=== PATIENT | female | born 1990 | race American Indian/Alaskan Native ===

== ENCOUNTER 2017-02-07 05:12 | Inpatient (IN) | payer OTHER ==
[2017-02-07 06:13] LABS: Basophils % (Auto) 0.7 % (0.0-1.8); Eosinophils % (Auto) 1.7 % (0.0-4.3); Mean Corpuscular HGB Conc 29 % (30-34); Platelet Count 481 K/mm3 (140-440); Red Blood Count 4.15 M/mm3 (3.65-5.03); Red Cell Distribution Width 19.5 % (13.2-15.2); White Blood Count 7.5 K/mm3 (4.5-11.0)
[2017-02-07 06:21] LABS: Alanine Aminotransferase 11 units/L (7-56); Albumin 4.4 g/dL (3.9-5); Albumin/Globulin Ratio 1.3 %; Alkaline Phosphatase 47 units/L (35-129); Anion Gap 17 mmol/L; Blood Urea Nitrogen 9 mg/dL (7-17); Calcium 9.2 mg/dL (8.4-10.2); Carbon Dioxide 23 mmol/L (22-30); Chloride 102.2 mmol/L (98-107); Glucose 85 mg/dL (65-100); Lipase 17 units/L (13-60); Potassium 4.1 mmol/L (3.6-5.0); Sodium 138 mmol/L (137-145); Total Protein 7.8 g/dL (6.3-8.2)
[2017-02-07] MEDS ORDERED: ATIVAN ONE (06:41)
[2017-02-07] MEDS ORDERED: ATIVAN IV ONE (06:51)
[2017-02-07 06:54] LABS: Hemoglobin 7.6 gm/dl (10.1-14.3); Mean Corpuscular Hemoglobin 18 pg (28-32); Mean Corpuscular Volume 63 fl (79-97)
[2017-02-07 07:13] LABS: Urine Drugs of Abuse Note Disclamer
[2017-02-07 07:27] LABS: Bilirubin,Urine NEG (Negative); Blood,Urine MOD (Negative); Ketones,Urine NEG (Negative); Leukocyte Esterase,Urine NEG (Negative); Mucus,Urine FEW /HPF; Nitrite,Urine NEG (Negative); Protein,Urine <15 mg/dL mg/dL (Negative); Urobilinogen,Urine < 2.0 mg/dL (<2.0)
[2017-02-07] MEDS ORDERED: NACL 0.9% 1000 ML 1,000 ML IV ONE (09:21)
[2017-02-07] MEDS ORDERED: NACL 0.9% 500 ML 500 ML IV ONE (09:21)
[2017-02-07] MEDS ORDERED: ZOFRAN IV ONE (09:21)
[2017-02-07] MEDS ORDERED: MORPHINE IV ONE (09:21)
[2017-02-07] MEDS ORDERED: DILANTIN PO ONE (09:23)
--- NOTE | 2017-02-07 09:29 | Emergency Department Report ---
ED General Adult HPI - General Chief complaint: Seizure Stated complaint: ABDOMINAL PAIN Time Seen by Provider: 02/07/17 06:51 Source: patient, EMS Mode of arrival: Stretcher Limitations: No Limitations - History of Present Illness Initial comments: Patient complains recurrent pelvic pain which she states is associated with fibroids as well as vaginal bleeding. She has been previously transfused for dysfunctional uterine bleeding. She also states that when she has this problem she typically has a seizure. She states that she was on the way to a pharmacy to refill her phenytoin however due to her bleeding and abdominal pain she came here instead. Not long after she was placed in the treatment area she had tonic -clonic movements. She did respond to sternal rub however and did not exhibit a definite postictal period. She was found to be tracking on stimulation. It is unknown if this was a partial seizure or a pseudoseizure. In any case she was given a milligram of Ativan and rested comfortably after that. -: days(s), week(s) Location: pelvis Radiation: non-radiation Severity scale (0 -10): 10 Quality: aching Consistency: intermittent Improves with: none Worsens with: none Associated Symptoms: denies other symptoms - Related Data Home Medications Medication Instructions Recorded Confirmed Last Taken Phenytoin [Dilantin] 500 mg PO BID 07/07/15 02/07/17 07/07/15 Previous Rx's Medication Instructions Recorded Last Taken Type HYDROcodone/APAP 7.5-325 [[place] 1 each PO Q8HR PRN #12 tablet 07/08/15 Unknown Rx 7.5-325 mg TAB] Allergies Allergy/AdvReac Type Severity Reaction Status Date / Time No Known Allergies Allergy Unverified 07/07/15 23:47 ED Review of Systems ROS: Stated complaint: ABDOMINAL PAIN Other details as noted in HPI Constitutional: weakness. denies: chills, fever Eyes: denies: eye pain, eye discharge, vision change ENT: denies: ear pain, throat pain Respiratory: SOB with exertion. denies: cough, shortness of breath, wheezing Cardiovascular: denies: chest pain, palpitations Endocrine: no symptoms reported Gastrointestinal: denies: abdominal pain, nausea, diarrhea Genitourinary: abnormal menses. denies: urgency, dysuria, discharge Musculoskeletal: denies: back pain, joint swelling, arthralgia Skin: denies: rash, lesions Neurological: denies: headache, weakness, paresthesias Psychiatric: denies: anxiety, depression Hematological/Lymphatic: denies: easy bleeding, easy bruising ED Past Medical Hx - Past Medical History Previous Medical History?: Yes Hx Seizures: Yes - Surgical History Past Surgical History?: No - Social History Smoking Status: Current Every Day Smoker Substance Use Type: Alcohol - Medications Home Medications: Home Medications Medication Instructions Recorded Confirmed Last Taken Type Phenytoin [Dilantin] 500 mg PO BID 07/07/15 02/07/17 07/07/15 History HYDROcodone/APAP 7.5-325 [[place] 1 each PO Q8HR PRN #12 tablet 07/08/15 02/07/17 Unknown Rx 7.5-325 mg TAB] ED Physical Exam - General Limitations: No Limitations General appearance: alert, in no apparent distress - Head Head exam: Present: atraumatic, normocephalic - Eye Eye exam: Present: normal appearance, PERRL, EOMI. Absent: scleral icterus - ENT ENT exam: Present: mucous membranes moist - Neck Neck exam: Present: normal inspection - Respiratory Respiratory exam: Present: normal lung sounds bilaterally. Absent: respiratory distress - Cardiovascular Cardiovascular Exam: Present: regular rate, normal rhythm. Absent: systolic murmur, diastolic murmur, rubs, gallop - GI/Abdominal GI/Abdominal exam: Present: soft, tenderness (discomfort to palpation appears to be associated with an enlarged uterus), normal bowel sounds, mass. Absent: distended, guarding, rebound, rigid, bruit, pulsatile mass, hernia - Extremities Exam Extremities exam: Present: normal inspection - Back Exam Back exam: Present: normal inspection - Neurological Exam Neurological exam: Present: alert, oriented X3, CN II-XII intact. Absent: motor sensory deficit - Psychiatric Psychiatric exam: Present: normal affect, normal mood - Skin Skin exam: Present: warm, dry, intact, normal color. Absent: rash ED Course Vital Signs 02/07/17 05:30 Temperature 98.8 F Pulse Rate 82 Respiratory 18 Rate Blood Pressure 128/84 [Right] O2 Sat by Pulse 99 Oximetry - Reevaluation(s) Reevaluation #1: Given IV fluid. One unit of blood ordered. Discussed with Dr. Reed admitted to the hospitalist service in stable condition. Ultrasound of the pelvis has been ordered. Further consultation at [facility] 02/07/17 10:25 ED Medical Decision Making - Lab Data Result diagrams: 02/07/17 05:35 02/07/17 05:35 Laboratory Results - last 24 hr 02/07/17 02/07/17 02/07/17 05:28 05:35 05:35 WBC 7.5 RBC 4.15 Hgb 7.6 L Hct 26.0 L MCV 63 L MCH 18 L MCHC 29 L RDW 19.5 H Plt Count 481 H Lymph % (Auto) 25.1 Bond % (Auto) 9.4 H Eos % (Auto) 1.7 Baso % (Auto) 0.7 Lymph # 1.9 Bond # 0.7 Eos # 0.1 Baso # 0.1 Seg Neutrophils % 63.1 Seg Neutrophils # 4.7 Sodium 138 Potassium 4.1 Chloride 102.2 Carbon Dioxide 23 Anion Gap 17 BUN 9 Creatinine 0.5 L Estimated GFR > 60 BUN/Creatinine Ratio 18.00 Glucose 85 Calcium 9.2 Total Bilirubin 0.30 AST 14 ALT 11 Alkaline Phosphatase 47 Total Protein 7.8 Albumin 4.4 Albumin/Globulin Ratio 1.3 Lipase 17 Urine Color Urine Turbidity Urine pH Ur Specific [employer] Urine Protein Urine Glucose (UA) Urine Ketones Urine Blood Urine Nitrite Urine Bilirubin Urine Urobilinogen Ur Leukocyte Esterase Urine WBC (Auto) Urine RBC (Auto) U Epithel Cells (Auto) Urine Mucus Urine HCG, Qual Urine Opiates Screen Urine Methadone Screen Ur Barbiturates Screen Phenytoin 0.8 L Ur Phencyclidine Scrn Ur Amphetamines Screen U Benzodiazepines Scrn Urine Cocaine Screen 02/07/17 02/07/17 06:19 06:19 WBC RBC Hgb Hct MCV MCH MCHC RDW Plt Count Lymph % (Auto) Bond % (Auto) Eos % (Auto) Baso % (Auto) Lymph # Bond # Eos # Baso # Seg Neutrophils % Seg Neutrophils # Sodium Potassium Chloride Carbon Dioxide Anion Gap BUN Creatinine Estimated GFR BUN/Creatinine Ratio Glucose Calcium Total Bilirubin AST ALT Alkaline Phosphatase Total Protein Albumin Albumin/Globulin Ratio Lipase Urine Color Straw Urine Turbidity Clear Urine pH 7.0 Ur Specific [employer] 1.016 Urine Protein <15 mg/dl Urine Glucose (UA) Neg Urine Ketones Neg Urine Blood Mod Urine Nitrite Neg Urine Bilirubin Neg Urine Urobilinogen < 2.0 Ur Leukocyte Esterase Neg Urine WBC (Auto) 1.0 Urine RBC (Auto) 12.0 U Epithel Cells (Auto) < 1.0 Urine Mucus Few Urine HCG, Qual Negative Urine Opiates Screen Presumptive negative Urine Methadone Screen Presumptive negative Ur Barbiturates Screen Presumptive negative Phenytoin Ur Phencyclidine Scrn Presumptive negative Ur Amphetamines Screen Presumptive negative U Benzodiazepines Scrn Presumptive negative Urine Cocaine Screen Presumptive negative Critical care attestation.: If time is entered above; I have spent that time in minutes in the direct care of this critically ill patient, excluding procedure time. ED Disposition Clinical Impression: Dysfunctional uterine bleeding, Symptomatic anemia, Seizure, Seizure disorder Disposition: OP ADMITTED IP TO THIS HOSP Is pt being admited?: Yes Does the pt Need Aspirin: No Condition: Stable Referrals: PRIMARY CARE, [Primary Care Provider] - 3-5 Days Time of Disposition: 10:27
--- NOTE | 2017-02-07 10:31 | Admit Criteria Form ---
Admission Criteria Documentation: OBSTETRIC AND GYNECOLOGIC DISEASE GRG Clinical Indications for Admission to Inpatient Care (Place 'X' for any and all applicable criteria): Hospital admission is needed for appropriate care of the patient because of 1 or more of the following (1)(2)(3): [ ]I. Hemodynamic instability, as indicated by 1 or more of the following (1)( 2)(3)(4)(5): [ ]a) Vital signs or other findings not as expected for chronic patient condition or baseline [ ]b) Instability indicated by 1 or more of the following: [ ]i) Hypotension [ ]ii) Symptomatic tachycardia unresponsive to treatment (eg, analgesia, fluids, sedation as indicated) [ ]iii) Inadequate perfusion indicated by 1 or more of the following: [ ]A. Lactic acidosis (greater than 2 mmol/ L) [ ]B. New abnormal capillary refill ( greater than 3 seconds) [ ]C. Reduced urine output [ ]D. New altered mental status [ ]iv) Orthostatic vital sign changes unresponsive to treatment (eg, fluids) [ ]v) Multiple IV fluid boluses required to maintain adequate blood pressure or perfusion [ ]vi) IV inotropic or vasopressor medication required to maintain adequate blood pressure or perfusion [ ]II. Obstetric infection requiring hospitalization indicated by 1 or more of the following(13)(14): [ ]a) Chorioamnionitis [ ]b) Endometritis (except mild endometritis) [ ]c) Pelvic abscess [ ]d) Peritonitis [ ]e) Septic pelvic thrombophlebitis [ ]III. Amniotic fluid or pulmonary embolism(4)(5)(6) [ ]IV. Suspected peritonitis or ectopic requiring monitoring beyond scope of 24 hours or observation care(7)(8) [ ]V. compromise requiring hospitalization indicated by ALL of the following(9)(10): [ ]a) compromise indicated by 1 or more of the following(11): [ ]i) Abnormal heart rate monitoring [ ]ii) Abnormal contraction stress test [ ]iii) Abnormal biophysical profile [ ]iv) Abnormal Doppler flow in vessels (ie, Doppler velocimetry) (12) [ ]b) Persistence of compromise indicators during evaluation and observation monitoring [ ]. Ovarian hyperstimulation syndrome requiring hospitalization[A] indicated by ALL of the following(15): [ ]a) Recent ovarian stimulation with gonadotropins, or evidence on ultrasound of spontaneous emergence of large number of ovarian follicles [ ]b) Evidence of severe ovarian hyperstimulation syndrome indicated by 1 or more of the following: [ ]i) Abdominal pain unresponsive to oral therapy [ ]ii) Acute respiratory distress syndrome [ ]iii) Electrolyte imbalance ( eg, hyponatremia, hyperkalemia) [ ]iv) Elevated liver enzymes [ ]v) Evidence of thromboembolism [ ]vi) Hemoconcentration (hematocrit greater than 45 % (0.45)) [ ]vii) Inability to maintain oral intake adequate to prevent hemoconcentration [ ]viii) Marked hypotension from baseline (eg, SBP 20 mmHg below patients usual pressure) [ ]ix) Oliguria or anuria [ ]x) Ovarian torsion [ ]xi) Pleural or pericardial effusion on x-ray or echocardiogram [ ]xii) Rapid increase in serum creatinine to greater than 1.2 mg/dL (106 micromoles/L) or creatinine clearance less than 50 mL/min/1.73m2 (0.84 mL/ sec/1.73m2) [ ]xiii) Ruptured ovarian cyst with hemorrhage [ ]xiv) Severe abdominal pain or peritoneal signs [ ]xv) Tense ascites that cannot be managed with paracentesis in outpatient setting [ ]VII.Pelvic infection requiring hospitalization indicated by 1 or more of the following (16): [ ]a) Outpatient treatment has failed or is not appropriate (eg, inpatient monitoring required) [ ]b) Pelvic abscess [ ]c) Surgical emergency cannot be excluded (eg, rigid abdomen) [ ]d) Vomiting precluding outpatient and observation care management VIII. loss complications requiring inpatient medical treatment indicated by 1 or more of the following (4)(7)(9): [ ]a) Fever [ ]b) Peritonitis [ ]c) Sepsis [ ]d) Severe abdominal pain [ ]IX. or patient requiring monitoring for severe heart failure, pulmonary disease, or other comorbid condition (eg, peripartum cardiomyopathy) (4)(17) [ ]X. patient with rupture of membranes requiring hospitalization indicated by ANY ONE of the following: [ ]a) Chorioamnionitis, cloudy amniotic fluid, or other evidence of infection [ ]b) compromise or other need for monitoring (11) [ ]c) Gestation longer than 23 weeks and ANY ONE of the following: [ ]i) Abnormal (noncephalic) presentation [ ]ii) Inadequate home environment (eg, home too far from hospital, unable to rapidly return to hospital) [ ]d) Temperature greater than 100.4 degrees F (38 degrees C)( oral) [ ]e) Threatened labor requiring monitoring beyond scope (eg, over 24 hours) of observation Care [ ] XI. complications, including severe lacerations, infections, or retained placenta (19) [X ] XII.Uterine bleeding with high-risk features indicated by ANY ONE of the following (4): [ ]a) Active major hemorrhage (eg, hemorrhage) [ ]b) Coagulopathy with active bleeding [ ]c) Gestational trophoblastic disease (eg, molar ) (20 ) [ ]d) (longer than 23 weeks) and ANY ONE of the following: [ ]i) Pain [ ]ii) Placental abruption, known or suspected [ ]iii) Placenta accrete, known or suspected(21) [ ]iv) Placenta previa, known or suspected [ ]v) Vasa previa [X ]e) Severe anemia [ ]XIII. Obstetric or Gynecologic Disease, condition or symptom for which ANY ONE of the following: [ ]a) Emergency and observation care have failed or are not considered appropriate ( Also use General Criteria: Observation Care Criteria as appropriate) [ ]b) Presence of a General Admission Criteria or Pediatric General Admission Criteria The original [facility] [address] content created by [facility] has been revised. The portions of the content which have been revised are identified through the use of italic text or in bold, and [facility] has neither reviewed nor approved the modified material.All other unmodified content is copyright [facility]. Please see references footnoted in the original [facility] edition 2016 Admission Criteria Met: Yes
[2017-02-07] MEDS ORDERED: DILANTIN 1,000 MG in NACL 0.9% 250ML 250 ML IV ONE (10:38)
[2017-02-07] MEDS ORDERED: DULCOLAX PR PRN (10:39)
[2017-02-07] MEDS ORDERED: MILK OF MAGNESIA PO PRN (10:39)
--- NOTE | 2017-02-07 10:47 | History and Physical Report ---
History of Present Illness Chief complaint: Seizure History of present illness: 26-year-old medical history of dysfunctional uterine bleeding, has a history of metromenorrhagia, and seizure disorder for which he takes Dilantin. She apparently was on her way to the pharmacy to refill her procedure for Dilantin, but instead came to the ER because pelvic pain and vaginal bleeding where getting out of control, shortly after arriving in the ER she suffered a tonic- clonic seizure after which is in post ictal and nonverbal for a period shorter than an hour. Her mentation then went back to her baselien, She states that she takes her phenytoin everyday and did not run out or miss any doses. She has been having issues with vaginal bleeding/pelvic pain for years now, but has never seen a [employer] because she does not have insurance. Vital signs otherwise been stable, review of labs shows subtherapeutic phenytoin levels. Anemia with a hemoglobin of 7.6. She states that she was supposed to be on iron supplements , but admits that she has not been taking them due to side effects Past History Past Medical History: other (dysfunctional uterine bleeding, seizure disorder) Past Surgical History: No surgical history Social history: smoking (for 8 years, has now weaned to 1-2 cigarettes per day) Family history: other (seizure in her neice) Medications and Allergies Allergies Allergy/AdvReac Type Severity Reaction Status Date / Time No Known Allergies Allergy Unverified 07/07/15 23:47 Home Medications Medication Instructions Recorded Confirmed Last Taken Type Phenytoin [Dilantin] 500 mg PO BID 07/07/15 02/07/17 07/07/15 History HYDROcodone/APAP 7.5-325 [[place] 1 each PO Q8HR PRN #12 tablet 07/08/15 02/07/17 Unknown Rx 7.5-325 mg TAB] Active Meds: Active Medications Acetaminophen (Tylenol) 650 mg PO Q4H PRN PRN Reason: Pain MILD(1-3)/Fever >100.5/ESPITIA Acetaminophen/Hydrocodone Bitart ([place] 7.5/325) 1 each PO Q8HR PRN PRN Reason: Pain Bisacodyl (Dulcolax) 10 mg MO QDAY PRN PRN Reason: Constipation unrelieved by MOM Phenytoin 1,000 mg/ Sodium (Chloride) 270 mls @ 500 mls/hr IV ONCE ONE Stop: 05/11/17 11:10 Sodium Chloride (Nacl 0.9% 1000 Ml) 1,000 mls @ 100 mls/hr IV DIRECT RICHA Magnesium Hydroxide (Milk Of Magnesia) 30 ml PO Q4H PRN PRN Reason: Constipation Ondansetron HCl (Zofran) 4 mg IV Q8H PRN PRN Reason: N/V unrelieved by Reglan Phenytoin (Dilantin) 500 mg IV BID RICHA Review of Systems All systems: negative Constitutional: weakness Genitourinary Female: dysmenorrhea, pelvic pain, menorrhagia Exam - Constitutional Vitals: Temp Pulse Resp BP Pulse Ox 98.8 F 82 18 128/84 99 02/07/17 05:30 02/07/17 05:30 02/07/17 05:30 02/07/17 05:30 02/07/17 05:30 General appearance: Present: no acute distress, well-nourished - EENT Eyes: Present: PERRL ENT: clear oral mucosa - Neck Neck: Present: supple, normal ROM - Respiratory Respiratory effort: normal Respiratory: bilateral: CTA - Cardiovascular Heart Sounds: Present: S1 & S2. Absent: rub, click - Extremities Extremities: pulses symmetrical, No edema Peripheral Pulses: within normal limits - Abdominal General gastrointestinal: Present: soft, non-tender, non-distended, normal bowel sounds Female genitourinary: Present: normal - Integumentary Integumentary: Present: clear, warm, dry - Musculoskeletal Musculoskeletal: strength equal bilaterally - Psychiatric Psychiatric: appropriate mood/affect, intact judgment & insight - Neurologic Neurologic: CNII-XII intact, no focal deficits, moves all extremities Results - Labs CBC & Chem 7: 02/07/17 05:35 02/07/17 05:35 Labs: Laboratory Last Values WBC 7.5 K/mm3 (4.5-11.0) 02/07/17 05:35 RBC 4.15 M/mm3 (3.65-5.03) 02/07/17 05:35 Hgb 7.6 gm/dl (10.1-14.3) L 02/07/17 05:35 Hct 26.0 % (30.3-42.9) L 02/07/17 05:35 MCV 63 fl (79-97) L 02/07/17 05:35 MCH 18 pg (28-32) L 02/07/17 05:35 MCHC 29 % (30-34) L 02/07/17 05:35 RDW 19.5 % (13.2-15.2) H 02/07/17 05:35 Plt Count 481 K/mm3 (140-440) H 02/07/17 05:35 Lymph % (Auto) 25.1 % (13.4-35.0) 02/07/17 05:35 [place] % (Auto) 9.4 % (0.0-7.3) H 02/07/17 05:35 Eos % (Auto) 1.7 % (0.0-4.3) 02/07/17 05:35 Baso % (Auto) 0.7 % (0.0-1.8) 02/07/17 05:35 Lymph # 1.9 K/mm3 (1.2-5.4) 02/07/17 05:35 [place] # 0.7 K/mm3 (0.0-0.8) 02/07/17 05:35 Eos # 0.1 K/mm3 (0.0-0.4) 02/07/17 05:35 Baso # 0.1 K/mm3 (0.0-0.1) 02/07/17 05:35 Seg Neutrophils % 63.1 % (40.0-70.0) 02/07/17 05:35 Seg Neutrophils # 4.7 K/mm3 (1.8-7.7) 02/07/17 05:35 Sodium 138 mmol/L (137-145) 02/07/17 05:35 Potassium 4.1 mmol/L (3.6-5.0) 02/07/17 05:35 Chloride 102.2 mmol/L (98-107) 02/07/17 05:35 Carbon Dioxide 23 mmol/L (22-30) 02/07/17 05:35 Anion Gap 17 mmol/L 02/07/17 05:35 BUN 9 mg/dL (7-17) 02/07/17 05:35 Creatinine 0.5 mg/dL (0.7-1.2) L 02/07/17 05:35 Estimated GFR > 60 ml/min 02/07/17 05:35 BUN/Creatinine Ratio 18.00 % 02/07/17 05:35 Glucose 85 mg/dL (65-100) 02/07/17 05:35 Calcium 9.2 mg/dL (8.4-10.2) 02/07/17 05:35 Total Bilirubin 0.30 mg/dL (0.1-1.2) 02/07/17 05:35 AST 14 units/L (5-40) 02/07/17 05:35 ALT 11 units/L (7-56) 02/07/17 05:35 Alkaline Phosphatase 47 units/L (35-129) 02/07/17 05:35 Total Protein 7.8 g/dL (6.3-8.2) 02/07/17 05:35 Albumin 4.4 g/dL (3.9-5) 02/07/17 05:35 Albumin/Globulin Ratio 1.3 % 02/07/17 05:35 Lipase 17 units/L (13-60) 02/07/17 05:35 Urine Color Straw (Yellow) 02/07/17 06:19 Urine Turbidity Clear (Clear) 02/07/17 06:19 Urine pH 7.0 (5.0-7.0) 02/07/17 06:19 Ur Specific [place] 1.016 (1.003-1.030) 02/07/17 06:19 Urine Protein <15 mg/dl mg/dL (Negative) 02/07/17 06:19 Urine Glucose (UA) Neg mg/dL (Negative) 02/07/17 06:19 Urine Ketones Neg mg/dL (Negative) 02/07/17 06:19 Urine Blood Mod (Negative) 02/07/17 06:19 Urine Nitrite Neg (Negative) 02/07/17 06:19 Urine Bilirubin Neg (Negative) 02/07/17 06:19 Urine Urobilinogen < 2.0 mg/dL (<2.0) 02/07/17 06:19 Ur Leukocyte Esterase Neg (Negative) 02/07/17 06:19 Urine WBC (Auto) 1.0 /HPF (0.0-6.0) 02/07/17 06:19 Urine RBC (Auto) 12.0 /HPF (0.0-6.0) 02/07/17 06:19 U Epithel Cells (Auto) < 1.0 /HPF (0-13.0) 02/07/17 06:19 Urine Mucus Few /HPF 02/07/17 06:19 Urine HCG, Qual Negative (Negative) 02/07/17 06:19 Urine Opiates Screen Presumptive negative 02/07/17 06:19 Urine Methadone Screen Presumptive negative 02/07/17 06:19 Ur Barbiturates Screen Presumptive negative 02/07/17 06:19 Phenytoin 0.8 mg/L (10.0-20.0) L 02/07/17 05:28 Ur Phencyclidine Scrn Presumptive negative 02/07/17 06:19 Ur Amphetamines Screen Presumptive negative 02/07/17 06:19 U Benzodiazepines Scrn Presumptive negative 02/07/17 06:19 Urine Cocaine Screen Presumptive negative 02/07/17 06:19 Blood Type A POSITIVE 02/07/17 09:25 Crossmatch See Detail 02/07/17 09:25 - Imaging and Cardiology Chest x-ray: image reviewed (no acute findings) Assessment and Plan Assessment and plan: 18-year-old past medical history of seizure disorder and dysfunctional uterine bleeding who presented for complaints of breakthrough menorrhagia. She had not filled her prescription for phenytoin, shortly after arriving in the ER she suffered a tonic-clonic seizure which broke with Ativan 1. Uncontrolled seizure disorder Phenytoin levels are subtherapeutic, currently 0.8, will give a phenytoin load and put her back on had normal dose of phenytoin, neurology consulted 2. Toxic metabolic encephalopathy Due to uncontrolled seizure, patient was post ictal, now resolved 3. Tobacco abuse Counseling was done for 10 minutes, she admits that she needs to stop smoking the occasional cigarettes 4. Metromenorrhagia Differential diagnosis include fibroids or endometriosis, follow-up ultrasound of her pelvis, [employer] [employer] consult 5. Acute blood loss anemia We'll start patient on iron supplements, transfuse to keep hemoglobin above 7., Current hemoglobin is 7.6 Plan of care discussed with patient/family: Yes
--- NOTE | 2017-02-07 10:59 | Ultrasound Report ---
ULTRASOUND PELVIC COMPLETE ULTRASOUND TRANSVAGINAL HISTORY: Pelvic pain, vaginal bleeding. TECHNIQUE: Transabdominal and transvaginal ultrasound with color and spectral doppler interrogation. The uterus is enlarged and heterogeneous measuring 14 x 9 x 9 cm. Multiple uterine fibroids are identified. The largest fibroid measures 8.0 cm at the uterine fundus. There are 3 fibroids in the anterior wall measuring up to 5.1 cm. A lower posterior wall fibroid measures 4.9 cm. The endometrial stripe is poorly imaged. Only the most inferior portions of the endometrial stripe is visualized which measures 6 mm. The right ovary measures 2.5 x 0.8 x 3.4 cm. The left ovary measures 3.7 x 1.6 x 2.8 cm. No adnexal cyst or mass. No pelvic fluid collection. IMPRESSION: Moderate to severe uterine fibroid disease as outlined above.
--- NOTE | 2017-02-07 12:57 | History and Physical Report ---
History of Present Illness Date of examination: 02/07/17 Date of admission: 02/07/17 10:21 Chief complaint: seizure History of present illness: 26-year-old right handed female with a past medical history of dysfunctional uterine bleeding, has a history of metromenorrhagia, and seizure disorder for which he takes Dilantin. She apparently was on her way to the pharmacy to refill her procedure for Dilantin, but instead came to the ER because pelvic pain and vaginal bleeding where getting out of control, shortly after arriving in the ER she suffered a tonic-clonic seizure after that she is in post ictal and nonverbal for a period shorter than an hour. Her mentation then went back to her baseline, She states that she takes her phenytoin everyday and did not run out or miss any doses. She has been having issues with vaginal bleeding/pelvic pain for years now, but has never seen a NAME PLATE STAMPER because she does not have insurance. Vital signs otherwise been stable, review of labs shows subtherapeutic phenytoin levels. Anemia with a hemoglobin of 7.6. She states that she was supposed to be on iron supplements, but admits that she has not been taking them due to side effects. She has her first seizure at age 3 years. She used depokan for a while, then phenytoin. She denied any other seizure medicines she used before. She has auru, taste metal in mouth. She described her as as possible focal with conscious impairment and secondary generalized. A few times, she has bitten tongue and incontinence. She denied that she has new type seizures. Past History Past Medical History: other (dysfunctional uterine bleeding, seizure disorder) Past Surgical History: No surgical history Social history: smoking (for 8 years, has now weaned to 1-2 cigarettes per day) Family history: other (seizure in her neice) Medications and Allergies Allergies Allergy/AdvReac Type Severity Reaction Status Date / Time No Known Allergies Allergy Unverified 07/07/15 23:47 Home Medications Medication Instructions Recorded Confirmed Last Taken Type Phenytoin [Dilantin] 500 mg PO BID 07/07/15 02/07/17 07/07/15 History HYDROcodone/APAP 7.5-325 [[place] 1 each PO Q8HR PRN #12 tablet 07/08/15 02/07/17 Unknown Rx 7.5-325 mg TAB] Active Meds: Active Medications Acetaminophen (Tylenol) 650 mg PO Q4H PRN PRN Reason: Pain MILD(1-3)/Fever >100.5/ESPITIA Acetaminophen/Hydrocodone Bitart ([place] 7.5/325) 1 each PO Q8HR PRN PRN Reason: Pain Bisacodyl (Dulcolax) 10 mg [place] QDAY PRN PRN Reason: Constipation unrelieved by MOM Sodium Chloride (Nacl 0.9% 1000 Ml) 1,000 mls @ 100 mls/hr IV DIRECT RICHA Magnesium Hydroxide (Milk Of Magnesia) 30 ml PO Q4H PRN PRN Reason: Constipation Multivitamins (Theragran Tab) 1 each PO QDAY RICHA Ondansetron HCl (Zofran) 4 mg IV Q8H PRN PRN Reason: N/V unrelieved by Reglan Phenytoin (Dilantin) 500 mg IV BID RICHA Review of Systems All systems: negative Physical Examination - Vital Signs Vital Signs: Vital Signs Temp Pulse Resp BP Pulse Ox 98.8 F 82 18 128/84 99 02/07/17 05:30 02/07/17 05:30 02/07/17 05:30 02/07/17 05:30 02/07/17 05:30 - Constitutional General appearance: comfortable - EENT EENT: Present: PERRL, mucous membranes moist - Respiratory Respiratory: Present: lungs clear, normal breath sounds, no respiratory distress - Cardiovascular Cardiovascular: Present: regular rate, normal S1, normal S2 Extremities: Present: no peripheral edema bilatateraly, no inflammation - Gastrointestinal Gastrointestinal: Present: soft, non-tender - Integumentary Integumentary: Present: normal - Neurologic Cranial nerve examination: PERRL, EOMI, intact Speech examination: intact Sensorimotor examination: intact Detailed motor examination: grossly full strength in Detailed sensory examination: intact Reflex and gait examination: intact Reflexes: 1+: ankle, bicep, knee, tricep Cerebellar examination: other (normal.) Results - Laboratory Findings CBC and BMP: 02/07/17 05:35 02/07/17 05:35 Assessment and Plan 1. Long standing history of seizure. 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 Seizure break though. Probably from subtherapeutic phenytoin. Give phenytoin and level tomorrow morning. 2. Don't drive a vehicle or operate heavy machinery for 6 months. Always seizure precaution. 3. Folic acid 2 mg daily. If , 2 mg bid. 4. 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 5. Plan discussed with her. 6. Will follow up with you. 7. If D/C, F/U with neurology in 6-8 weeks.
[2017-02-07] MEDS: ZOFRAN IV PRN (15:08)
[2017-02-07] MEDS: THERAGRAN Tab PO SCH (18:52)
[2017-02-07] MEDS: NORCO 7.5/325 PO PRN (20:39)
[2017-02-07] MEDS ORDERED: DILANTIN IV SCH ×2 (22:00)
[2017-02-07] MEDS ORDERED: NACL 0.9% IV SCH (22:00)
[2017-02-07] MEDS ORDERED: BENADRYL PO PRN (22:46)
[2017-02-08] MEDS: NACL 0.9% 1000 ML 1,000 ML IV SCH ×3 (04:30→21:49)
[2017-02-08 07:45] LABS: Anion Gap 18 mmol/L; BUN/Creatinine Ratio 13.33; Blood Urea Nitrogen 8 mg/dL (7-17); Calcium 8.6 mg/dL (8.4-10.2); Carbon Dioxide 22 mmol/L (22-30); Chloride 104.1 mmol/L (98-107); Glucose 79 mg/dL (65-100); Potassium 4.1 mmol/L (3.6-5.0); Sodium 140 mmol/L (137-145)
[2017-02-08 09:27] LABS: Hematocrit 27.5 % (30.3-42.9); Hemoglobin 8.2 gm/dl (10.1-14.3); Mean Corpuscular HGB Conc 30 % (30-34); Platelet Count 397 K/mm3 (140-440); Red Blood Count 4.13 M/mm3 (3.65-5.03); White Blood Count 8.3 K/mm3 (4.5-11.0)
[2017-02-08 09:37] LABS: Mean Corpuscular Hemoglobin 20 pg (28-32); Mean Corpuscular Volume 67 fl (79-97); Red Cell Distribution Width 23.3 % (13.2-15.2)
[2017-02-08] MEDS: THERAGRAN Tab PO SCH (09:43)
[2017-02-08] MEDS: FOLVITE PO SCH (09:43)
--- NOTE | 2017-02-08 10:45 | Discharge Summary ---
Providers - Providers Date of Admission: 02/07/17 10:21 Attending physician: ARMANDO GRIER MD 02/07/17 10:38 Consult to Physician [CONS] Routine Consulting Provider: GARCIA GARDINER Reason For Exam: status epilepticus Place consult to:: NEURO Notified:: Y Was contact made?: Yes Time called:: 11:00 Comment:: LEFT MESSAGE AT EXT [id number] Primary care physician: ORDER PROCESSING CLERK Hospitalization Condition: Stable Hospital course: 18-year-old past medical history of seizure disorder and dysfunctional uterine bleeding who presented for complaints of breakthrough menorrhagia. She had not filled her prescription for phenytoin, shortly after arriving in the ER she suffered a tonic-clonic seizure which broke with Ativan 1. Uncontrolled seizure disorder Phenytoin levels are subtherapeutic, currently 0.8, will give a phenytoin load and put her back on had normal dose of phenytoin, neurology consulted 2. Toxic metabolic encephalopathy Due to uncontrolled seizure, patient was post ictal, now resolved 3. Tobacco abuse Counseling was done for 10 minutes, she admits that she needs to stop smoking the occasional cigarettes 4. Metromenorrhagia Differential diagnosis include fibroids or endometriosis, follow-up ultrasound of her pelvis, COW RIDER consult 5. Acute blood loss anemia We'll start patient on iron supplements, transfuse to keep hemoglobin above 7., Current hemoglobin is 7.6 Disposition: DISCHARGED TO HOME OR SELFCARE Time spent for discharge: 35 minutes Core Measure Documentation - Palliative Care Palliative Care/ Comfort Measures: Not Applicable - Core Measures Any of the following diagnoses?: none Exam - Constitutional Vitals: Temp Pulse Resp BP Pulse Ox 98.6 F 75 18 118/70 100 02/08/17 08:00 02/08/17 08:00 02/08/17 08:00 02/08/17 08:00 02/08/17 08:00 General appearance: Present: no acute distress, well-nourished - EENT Eyes: Present: PERRL ENT: hearing intact, clear oral mucosa - Neck Neck: Present: supple, normal ROM - Respiratory Respiratory effort: normal Respiratory: bilateral: CTA - Cardiovascular Heart Sounds: Present: S1 & S2. Absent: rub, click - Extremities Extremities: pulses symmetrical, No edema Peripheral Pulses: within normal limits - Abdominal General gastrointestinal: Present: soft, non-tender, non-distended, normal bowel sounds Female genitourinary: Present: normal - Integumentary Integumentary: Present: clear, warm, dry - Musculoskeletal Musculoskeletal: gait normal, strength equal bilaterally - Psychiatric Psychiatric: appropriate mood/affect, intact judgment & insight - Neurologic Neurologic: CNII-XII intact, moves all extremities Plan Follow up with: PRIMARY CAREMD [Primary Care Provider] - 3-5 Days GARCIA GARDINER MD [Staff Physician] - 7 Days Prescriptions: Folic Acid [Folvite] 2 mg PO QDAY #60 tablet HYDROcodone/APAP 7.5-325 [[place] 7.5-325 mg TAB] 1 each PO Q8HR PRN #12 tablet PRN Reason: Pain
--- NOTE | 2017-02-08 11:15 | Progress Note ---
Assessment and Plan 1. Long standing history of seizure. 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 Seizure break though. Probably from subtherapeutic phenytoin. Phenytoin level 32.3 this morning, yesterday 0.8. D/C current dose of phenytoin. 2. Don't drive a vehicle or operate heavy machinery for 6 months. Always seizure precaution. 3. Folic acid 2 mg daily. If , 2 mg bid. 4. Her home dose of phenytoin, 200 mg qam, 100 mg noon, 200 mg qpm. Recheck phenytoin level, if back to normal therapeutic level, resume her home dose of phenytoin. 5. 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 6. Plan discussed with her, her nurse, Jacki at bed side and her hospitalist Dr. Meme Mike over phone. 7. Will follow up with you PRN. Please call if further recommendations needed. 8. If D/C, F/U with neurology in 6-8 weeks. Subjective Date of service: 02/08/17 Principal diagnosis: Seizure. Interval history: No more seizures after admission Objective - Vital Sign Vital Signs - 12hr 02/08/17 08:00 Temperature 98.6 F Pulse Rate [ 75 Left Radial] Respiratory 18 Rate Blood Pressure 118/70 [Left Arm] O2 Sat by Pulse 100 Oximetry - General Apperance Constitutional: comfortable - EENT EENT: PERRL, mucous membranes moist - Respiratory Respiratory: lungs clear, normal breath sounds, no respiratory distress - Cardiovascular Cardiovascular: regular rate, normal S1, normal S2 - Gastrointestinal Gastrointestinal: soft, non-tender - Neurologic Cranial nerve examination: PERRL, EOMI, intact Speech examination: intact Detailed motor examination: grossly full strength in, full strength in all etienne Detailed sensory examination: intact Reflex and gait examination: intact Reflexes: 1+: ankle, bicep, knee, tricep Cerebellar examination: other (normal.) - Musculoskeletal Musculoskeletal: normal range of motion - Laboratory Findings CBC and BMP: 02/08/17 09:00 02/08/17 04:31 Abnormal Lab Findings: Abnormal Labs 02/08/17 02/08/17 02/08/17 04:31 04:31 09:00 Hgb 8.2 L Hct 27.5 L MCV 67 L D MCH 20 L RDW 23.3 H Creatinine 0.6 L Phenytoin 32.3 H
[2017-02-08] MEDS: NORCO 7.5/325 PO PRN ×2 (12:41→21:49)
[2017-02-08] MEDS: TORADOL IV SCH ×2 (13:43→21:44)
--- NOTE | 2017-02-08 14:17 | Progress Note ---
Assessment and Plan Assessment and plan: 18-year-old past medical history of seizure disorder and dysfunctional uterine bleeding who presented for complaints of breakthrough menorrhagia. She had not filled her prescription for phenytoin, shortly after arriving in the ER she suffered a tonic-clonic seizure which broke with Ativan 1. Uncontrolled seizure disorder Neurology input appreciated, phenytoin levels now supratherapeutic, we'll hold phenytoin check a level in the morning. I will discharge her phenytoin 200 mg in the a.m. 100 mg at lunch and 200 mg in the p.m. 2. Toxic metabolic encephalopathy Due to uncontrolled seizure, patient was post ictal, now resolved 3. Tobacco abuse Counseling was done for 10 minutes, she admits that she needs to stop smoking the occasional cigarettes 4. Metromenorrhagia Ultrasounds reviewed, consistent with fibroids, patient advised to see a rotary surface grinder in outpatient for further treatments IV analgesics ordered 5. Acute blood loss anemia requiring transfusion Status post transfusion with appropriate rise in hemoglobin We'll start patient on iron supplements, History Interval history: She is complaining of menstrual cramps, she states that at 10 out of 10 in her pelvis, she states it is always like this during the first 3 days of her period. Pain radiates to her back, it is pounding in nature. No exacerbating factors, relieved by laying still. No further seizures since admission Hospitalist Physical - Physical exam Narrative exam: General: Patient appears well in no distress HEENT: MMM, EOMI cardiac: S1-S2 heard lungs: clear to auscultation, abdomen: soft, nontender, nondistended bowel sounds positive extremities: no edema clubbing or cyanosis Skin: no rash or lesion Neuro: no focal deficit Psych: appropriate behavior and mood, cognition intact - Constitutional Vitals: Temp Pulse Resp BP Pulse Ox 98.6 F 75 18 118/70 100 02/08/17 08:00 02/08/17 08:00 02/08/17 08:00 02/08/17 08:00 02/08/17 08:00 General appearance: Present: no acute distress, well-nourished Results - Labs CBC & Chem 7: 02/08/17 09:00 02/08/17 04:31 Labs: Laboratory Last Values WBC 8.3 K/mm3 (4.5-11.0) 02/08/17 09:00 RBC 4.13 M/mm3 (3.65-5.03) 02/08/17 09:00 Hgb 8.2 gm/dl (10.1-14.3) L 02/08/17 09:00 Hct 27.5 % (30.3-42.9) L 02/08/17 09:00 MCV 67 fl (79-97) L D 02/08/17 09:00 MCH 20 pg (28-32) L 02/08/17 09:00 MCHC 30 % (30-34) 02/08/17 09:00 RDW 23.3 % (13.2-15.2) H 02/08/17 09:00 Plt Count 397 K/mm3 (140-440) 02/08/17 09:00 Lymph % (Auto) 25.1 % (13.4-35.0) 02/07/17 05:35 [place] % (Auto) 9.4 % (0.0-7.3) H 02/07/17 05:35 Eos % (Auto) 1.7 % (0.0-4.3) 02/07/17 05:35 Baso % (Auto) 0.7 % (0.0-1.8) 02/07/17 05:35 Lymph # 1.9 K/mm3 (1.2-5.4) 02/07/17 05:35 [place] # 0.7 K/mm3 (0.0-0.8) 02/07/17 05:35 Eos # 0.1 K/mm3 (0.0-0.4) 02/07/17 05:35 Baso # 0.1 K/mm3 (0.0-0.1) 02/07/17 05:35 Seg Neutrophils % 63.1 % (40.0-70.0) 02/07/17 05:35 Seg Neutrophils # 4.7 K/mm3 (1.8-7.7) 02/07/17 05:35 Sodium 140 mmol/L (137-145) 02/08/17 04:31 Potassium 4.1 mmol/L (3.6-5.0) 02/08/17 04:31 Chloride 104.1 mmol/L (98-107) 02/08/17 04:31 Carbon Dioxide 22 mmol/L (22-30) 02/08/17 04:31 Anion Gap 18 mmol/L 02/08/17 04:31 BUN 8 mg/dL (7-17) 02/08/17 04:31 Creatinine 0.6 mg/dL (0.7-1.2) L 02/08/17 04:31 Estimated GFR > 60 ml/min 02/08/17 04:31 BUN/Creatinine Ratio 13.33 % 02/08/17 04:31 Glucose 79 mg/dL (65-100) 02/08/17 04:31 Calcium 8.6 mg/dL (8.4-10.2) 02/08/17 04:31 Magnesium 2.00 mg/dL (1.7-2.3) 02/08/17 04:31 Total Bilirubin 0.30 mg/dL (0.1-1.2) 02/07/17 05:35 AST 14 units/L (5-40) 02/07/17 05:35 ALT 11 units/L (7-56) 02/07/17 05:35 Alkaline Phosphatase 47 units/L (35-129) 02/07/17 05:35 Total Protein 7.8 g/dL (6.3-8.2) 02/07/17 05:35 Albumin 4.4 g/dL (3.9-5) 02/07/17 05:35 Albumin/Globulin Ratio 1.3 % 02/07/17 05:35 Lipase 17 units/L (13-60) 02/07/17 05:35 Urine Color Straw (Yellow) 02/07/17 06:19 Urine Turbidity Clear (Clear) 02/07/17 06:19 Urine pH 7.0 (5.0-7.0) 02/07/17 06:19 Ur Specific [place] 1.016 (1.003-1.030) 02/07/17 06:19 Urine Protein <15 mg/dl mg/dL (Negative) 02/07/17 06:19 Urine Glucose (UA) Neg mg/dL (Negative) 02/07/17 06:19 Urine Ketones Neg mg/dL (Negative) 02/07/17 06:19 Urine Blood Mod (Negative) 02/07/17 06:19 Urine Nitrite Neg (Negative) 02/07/17 06:19 Urine Bilirubin Neg (Negative) 02/07/17 06:19 Urine Urobilinogen < 2.0 mg/dL (<2.0) 02/07/17 06:19 Ur Leukocyte Esterase Neg (Negative) 02/07/17 06:19 Urine WBC (Auto) 1.0 /HPF (0.0-6.0) 02/07/17 06:19 Urine RBC (Auto) 12.0 /HPF (0.0-6.0) 02/07/17 06:19 U Epithel Cells (Auto) < 1.0 /HPF (0-13.0) 02/07/17 06:19 Urine Mucus Few /HPF 02/07/17 06:19 Urine HCG, Qual Negative (Negative) 02/07/17 06:19 Urine Opiates Screen Presumptive negative 02/07/17 06:19 Urine Methadone Screen Presumptive negative 02/07/17 06:19 Ur Barbiturates Screen Presumptive negative 02/07/17 06:19 Phenytoin 32.3 mg/L (10.0-20.0) H 02/08/17 04:31 Ur Phencyclidine Scrn Presumptive negative 02/07/17 06:19 Ur Amphetamines Screen Presumptive negative 02/07/17 06:19 U Benzodiazepines Scrn Presumptive negative 02/07/17 06:19 Urine Cocaine Screen Presumptive negative 02/07/17 06:19 U Marijuana (THC) Screen Presumptive positive 02/07/17 06:19 Drugs of Abuse Note Disclamer 02/07/17 06:19 Blood Type A POSITIVE 02/07/17 09:25 TIMOTHY Antibody Screen Negative 02/07/17 09:25 Crossmatch See Detail 02/07/17 09:25
[2017-02-09] MEDS ORDERED: ATIVAN IV ONE (05:03)
[2017-02-09] MEDS: TYLENOL PO PRN (05:51)
[2017-02-09] MEDS: TORADOL IV SCH ×3 (05:51→22:43)
--- NOTE | 2017-02-09 10:23 | Magnetic Resonance Report ---
MRI OF THE BRAIN WITHOUT CONTRAST: HISTORY: Seizures PROCEDURE: Multiplanar, multisequence MR imaging of the brain without IV contrast was performed. FINDINGS: The brain parenchyma signal intensity and its taylor white interface are within normal limits on all sequences. No evidence for acute ischemia, hemorrhage or mass. No chronic infarct or extra-axial fluid collection. The midline structures are central. The basal cisterns are patent. Normal ventricular size. The orbital cavities and sella turcica demonstrate no abnormality. The visualized paranasal sinuses and mastoid air cells are well aerated. IMPRESSION: Unremarkable non-enhanced MRI of the brain.
[2017-02-09] MEDS: FOLVITE PO SCH (11:47)
[2017-02-09] MEDS: THERAGRAN Tab PO SCH (11:47)
--- NOTE | 2017-02-09 11:51 | Progress Note ---
Assessment and Plan Assessment and plan: 18-year-old past medical history of seizure disorder and dysfunctional uterine bleeding who presented for complaints of breakthrough menorrhagia. She had not filled her prescription for phenytoin, shortly after arriving in the ER she suffered a tonic-clonic seizure which broke with Ativan 1. Uncontrolled seizure disorder Neurology input appreciated, phenytoin levels now supratherapeutic, Continue to hold phenytoin, fup levels in am, It is questionable if she really had a seizure this am as she states that she had a nightmare and did not lose consciousness MRI [place] 02/09- wnl . I will discharge her phenytoin 200 mg in the a.m. 100 mg at lunch and 200 mg in the p.m. if Phenytoin levels are within treatment range 2. Toxic metabolic encephalopathy Due to uncontrolled seizure, patient was post ictal, now resolved 3. Tobacco abuse Counseling was done for 10 minutes, she admits that she needs to stop smoking the occasional cigarettes 4. Metromenorrhagia Ultrasounds reviewed, consistent with fibroids, patient advised to see a science faculty member in outpatient for further treatments IV analgesics ordered 5. Acute blood loss anemia requiring transfusion Status post transfusion with appropriate rise in hemoglobin, continue on iron supplements, History Interval history: She is complaining of menstrual cramps, she states that at 5 out of 10 in her pelvis and is improved, she states it is always like this during the first 3 days of her period. Pain radiates to her back, it is pounding in nature. No exacerbating factors, relieved by laying still. Nursing staff recorded tonic- clonic activity at 5 AM this morning. Patient denies this, she does not believe she lost consciousness, Scherber is having a nightmare. She was given Ativan after which the behavior broke. Hospitalist Physical - Physical exam Narrative exam: General: Patient appears well in no distress HEENT: MMM, EOMI cardiac: S1-S2 heard lungs: clear to auscultation, abdomen: soft, nontender, nondistended bowel sounds positive extremities: no edema clubbing or cyanosis Skin: no rash or lesion Neuro: no focal deficit Psych: appropriate behavior and mood, cognition intact - Constitutional Vitals: Temp Pulse Resp BP Pulse Ox 98 F 76 16 110/62 100 02/09/17 08:00 02/09/17 08:00 02/09/17 08:00 02/09/17 08:00 02/09/17 08:00 General appearance: Present: no acute distress, well-nourished Results - Labs CBC & Chem 7: 02/08/17 09:00 02/08/17 04:31 Labs: Laboratory Last Values WBC 8.3 K/mm3 (4.5-11.0) 02/08/17 09:00 RBC 4.13 M/mm3 (3.65-5.03) 02/08/17 09:00 Hgb 8.2 gm/dl (10.1-14.3) L 02/08/17 09:00 Hct 27.5 % (30.3-42.9) L 02/08/17 09:00 MCV 67 fl (79-97) L D 02/08/17 09:00 MCH 20 pg (28-32) L 02/08/17 09:00 MCHC 30 % (30-34) 02/08/17 09:00 RDW 23.3 % (13.2-15.2) H 02/08/17 09:00 Plt Count 397 K/mm3 (140-440) 02/08/17 09:00 Lymph % (Auto) 25.1 % (13.4-35.0) 02/07/17 05:35 [place] % (Auto) 9.4 % (0.0-7.3) H 02/07/17 05:35 Eos % (Auto) 1.7 % (0.0-4.3) 02/07/17 05:35 Baso % (Auto) 0.7 % (0.0-1.8) 02/07/17 05:35 Lymph # 1.9 K/mm3 (1.2-5.4) 02/07/17 05:35 [place] # 0.7 K/mm3 (0.0-0.8) 02/07/17 05:35 Eos # 0.1 K/mm3 (0.0-0.4) 02/07/17 05:35 Baso # 0.1 K/mm3 (0.0-0.1) 02/07/17 05:35 Seg Neutrophils % 63.1 % (40.0-70.0) 02/07/17 05:35 Seg Neutrophils # 4.7 K/mm3 (1.8-7.7) 02/07/17 05:35 Sodium 140 mmol/L (137-145) 02/08/17 04:31 Potassium 4.1 mmol/L (3.6-5.0) 02/08/17 04:31 Chloride 104.1 mmol/L (98-107) 02/08/17 04:31 Carbon Dioxide 22 mmol/L (22-30) 02/08/17 04:31 Anion Gap 18 mmol/L 02/08/17 04:31 BUN 8 mg/dL (7-17) 02/08/17 04:31 Creatinine 0.6 mg/dL (0.7-1.2) L 02/08/17 04:31 Estimated GFR > 60 ml/min 02/08/17 04:31 BUN/Creatinine Ratio 13.33 % 02/08/17 04:31 Glucose 79 mg/dL (65-100) 02/08/17 04:31 Calcium 8.6 mg/dL (8.4-10.2) 02/08/17 04:31 Magnesium 2.00 mg/dL (1.7-2.3) 02/08/17 04:31 Total Bilirubin 0.30 mg/dL (0.1-1.2) 02/07/17 05:35 AST 14 units/L (5-40) 02/07/17 05:35 ALT 11 units/L (7-56) 02/07/17 05:35 Alkaline Phosphatase 47 units/L (35-129) 02/07/17 05:35 Total Protein 7.8 g/dL (6.3-8.2) 02/07/17 05:35 Albumin 4.4 g/dL (3.9-5) 02/07/17 05:35 Albumin/Globulin Ratio 1.3 % 02/07/17 05:35 Lipase 17 units/L (13-60) 02/07/17 05:35 Urine Color Straw (Yellow) 02/07/17 06:19 Urine Turbidity Clear (Clear) 02/07/17 06:19 Urine pH 7.0 (5.0-7.0) 02/07/17 06:19 Ur Specific [place] 1.016 (1.003-1.030) 02/07/17 06:19 Urine Protein <15 mg/dl mg/dL (Negative) 02/07/17 06:19 Urine Glucose (UA) Neg mg/dL (Negative) 02/07/17 06:19 Urine Ketones Neg mg/dL (Negative) 02/07/17 06:19 Urine Blood Mod (Negative) 02/07/17 06:19 Urine Nitrite Neg (Negative) 02/07/17 06:19 Urine Bilirubin Neg (Negative) 02/07/17 06:19 Urine Urobilinogen < 2.0 mg/dL (<2.0) 02/07/17 06:19 Ur Leukocyte Esterase Neg (Negative) 02/07/17 06:19 Urine WBC (Auto) 1.0 /HPF (0.0-6.0) 02/07/17 06:19 Urine RBC (Auto) 12.0 /HPF (0.0-6.0) 02/07/17 06:19 U Epithel Cells (Auto) < 1.0 /HPF (0-13.0) 02/07/17 06:19 Urine Mucus Few /HPF 02/07/17 06:19 Urine HCG, Qual Negative (Negative) 02/07/17 06:19 Urine Opiates Screen Presumptive negative 02/07/17 06:19 Urine Methadone Screen Presumptive negative 02/07/17 06:19 Ur Barbiturates Screen Presumptive negative 02/07/17 06:19 Phenytoin 29.5 mg/L (10.0-20.0) H 02/09/17 04:11 Ur Phencyclidine Scrn Presumptive negative 02/07/17 06:19 Ur Amphetamines Screen Presumptive negative 02/07/17 06:19 U Benzodiazepines Scrn Presumptive negative 02/07/17 06:19 Urine Cocaine Screen Presumptive negative 02/07/17 06:19 U Marijuana (THC) Screen Presumptive positive 02/07/17 06:19 Drugs of Abuse Note Disclamer 02/07/17 06:19 Blood Type A POSITIVE 02/07/17 09:25 TIMOTHY Antibody Screen Negative 02/07/17 09:25 Crossmatch See Detail 02/07/17 09:25 - Imaging and Cardiology MRI - head: image reviewed (No abnormalites)
[2017-02-09] MEDS: NACL 0.9% 1000 ML 1,000 ML IV SCH ×2 (14:00→22:42)
[2017-02-09] MEDS: ZOFRAN IV PRN (20:09)
[2017-02-09] MEDS: NORCO 7.5/325 PO PRN (20:09)
[2017-02-10] MEDS: TORADOL IV SCH ×2 (05:50→16:06)
[2017-02-10] MEDS: NACL 0.9% 1000 ML 1,000 ML IV SCH ×2 (05:50→17:52)
--- NOTE | 2017-02-10 08:07 | Discharge Summary ---
Providers - Providers Date of Admission: 02/07/17 10:21 Attending physician: ARMANDO GRIER MD 02/07/17 10:38 Consult to Physician [CONS] Routine Consulting Provider: GARCIA GARDINER Reason For Exam: status epilepticus Place consult to:: NEURO Notified:: Y Was contact made?: Yes Time called:: 11:00 Comment:: LEFT MESSAGE AT EXT [id number] Primary care physician: HOUSING COURT JUDGE Hospitalization Condition: Stable Hospital course: 18-year-old past medical history of seizure disorder and dysfunctional uterine bleeding who presented for complaints of breakthrough menorrhagia. She had not filled her prescription for phenytoin, shortly after arriving in the ER she suffered a tonic-clonic seizure which broke with Ativan 1. Uncontrolled seizure disorder Neurology input appreciated, phenytoin levels now supratherapeutic, Continue to hold phenytoin, fup levels in am, It is questionable if she really had a seizure this am as she states that she had a nightmare and did not lose consciousness MRI [facility] 02/09- wnl . I will discharge her phenytoin 200 mg in the a.m. 100 mg at lunch and 200 mg in the p.m. if Phenytoin levels are within treatment range 2. Toxic metabolic encephalopathy Due to uncontrolled seizure, patient was post ictal, now resolved 3. Tobacco abuse Counseling was done for 10 minutes, she admits that she needs to stop smoking the occasional cigarettes 4. Metromenorrhagia Ultrasounds reviewed, consistent with fibroids, patient advised to see a manager animal in outpatient for further treatments IV analgesics ordered 5. Acute blood loss anemia requiring transfusion Status post transfusion with appropriate rise in hemoglobin, continue on iron supplements, Disposition: DISCHARGED TO HOME OR SELFCARE Time spent for discharge: 35 minutes Core Measure Documentation - Palliative Care Palliative Care/ Comfort Measures: Not Applicable - Core Measures Any of the following diagnoses?: none Exam - Constitutional Vitals: Temp Pulse Resp BP Pulse Ox 99.6 F 72 20 124/75 100 02/10/17 00:00 02/10/17 00:00 02/10/17 00:00 02/10/17 00:00 02/10/17 00:00 General appearance: Present: no acute distress, well-nourished - EENT Eyes: Present: PERRL ENT: hearing intact, clear oral mucosa - Neck Neck: Present: supple, normal ROM - Respiratory Respiratory effort: normal Respiratory: bilateral: CTA - Cardiovascular Heart Sounds: Present: S1 & S2. Absent: rub, click - Extremities Extremities: pulses symmetrical, No edema Peripheral Pulses: within normal limits - Abdominal General gastrointestinal: Present: soft, non-tender, non-distended, normal bowel sounds Female genitourinary: Present: normal - Integumentary Integumentary: Present: clear, warm, dry - Musculoskeletal Musculoskeletal: gait normal, strength equal bilaterally - Psychiatric Psychiatric: appropriate mood/affect, intact judgment & insight - Neurologic Neurologic: CNII-XII intact, moves all extremities Plan Follow up with: GARCIA GARDINER MD [Staff Physician] - 7 Days PRIMARY CARE, [Primary Care Provider] - 3-5 Days Prescriptions: Folic Acid [Folvite] 2 mg PO QDAY #60 tablet HYDROcodone/APAP 7.5-325 [[place] 7.5-325 mg TAB] 1 each PO Q8HR PRN #12 tablet PRN Reason: Pain levETIRAcetam [Keppra TAB] 500 mg PO BID #60 tablet
[2017-02-10] MEDS: THERAGRAN Tab PO SCH (09:32)
[2017-02-10] MEDS: NORCO 7.5/325 PO PRN (09:32)
[2017-02-10] MEDS: FOLVITE PO SCH (09:32)
[2017-02-10] MEDS: KEPPRA PO SCH ×2 (13:28→21:49)
[2017-02-10] MEDS: ZOFRAN IV PRN (13:29)
--- NOTE | 2017-02-10 14:34 | Progress Note ---
Assessment and Plan Assessment and plan: 18-year-old past medical history of seizure disorder and dysfunctional uterine bleeding who presented for complaints of breakthrough menorrhagia. She had not filled her prescription for phenytoin, shortly after arriving in the ER she suffered a tonic-clonic seizure which broke with Ativan 1. Uncontrolled seizure disorder Patient is having seizures despite therapeutic phenytoin levels, discontinue phenytoin, patient hasn't started on Keppra, neurology follow-up MRI [facility] 02/09- wnl 2. Toxic metabolic encephalopathy Due to uncontrolled seizure and phenytoin toxicity, patient was post ictal, now resolved 3. Tobacco abuse Counseling was done for 10 minutes, she admits that she needs to stop smoking the occasional cigarettes 4. Metromenorrhagia Ultrasounds reviewed, consistent with fibroids, patient advised to see a staff research associate in outpatient for further treatments IV analgesics ordered 5. Acute blood loss anemia requiring transfusion Status post transfusion with appropriate rise in hemoglobin, continue on iron supplements, 6. Phenytoin toxicity Has been discontinued, levels trending down History Interval history: Nursing staff related that she had 2 tonic clonic seizures this morning. After which she lost control of her bowels. She is crying and very upset, she doesn' t like to lose control of herself. She is complaining of menstrual cramps, she states that at 5 out of 10 in her pelvis and is improved, she states it is always like this during the first 3 days of her period. Pain radiates to her back, it is pounding in nature. No exacerbating factors, relieved by laying still. Hospitalist Physical - Physical exam Narrative exam: General: Patient appears well in no distress HEENT: MMM, EOMI cardiac: S1-S2 heard lungs: clear to auscultation, abdomen: soft, nontender, nondistended bowel sounds positive extremities: no edema clubbing or cyanosis Skin: no rash or lesion Neuro: no focal deficit Psych: appropriate behavior and mood, cognition intact - Constitutional Vitals: Temp Pulse Resp BP Pulse Ox 98.3 F 80 14 110/64 99 02/10/17 07:41 02/10/17 07:41 02/10/17 07:41 02/10/17 07:41 02/10/17 07:41 General appearance: Present: no acute distress, well-nourished Results - Labs CBC & Chem 7: 02/08/17 09:00 02/08/17 04:31 Labs: Laboratory Last Values WBC 8.3 K/mm3 (4.5-11.0) 02/08/17 09:00 RBC 4.13 M/mm3 (3.65-5.03) 02/08/17 09:00 Hgb 8.2 gm/dl (10.1-14.3) L 02/08/17 09:00 Hct 27.5 % (30.3-42.9) L 02/08/17 09:00 MCV 67 fl (79-97) L D 02/08/17 09:00 MCH 20 pg (28-32) L 02/08/17 09:00 MCHC 30 % (30-34) 02/08/17 09:00 RDW 23.3 % (13.2-15.2) H 02/08/17 09:00 Plt Count 397 K/mm3 (140-440) 02/08/17 09:00 Lymph % (Auto) 25.1 % (13.4-35.0) 02/07/17 05:35 [place] % (Auto) 9.4 % (0.0-7.3) H 02/07/17 05:35 Eos % (Auto) 1.7 % (0.0-4.3) 02/07/17 05:35 Baso % (Auto) 0.7 % (0.0-1.8) 02/07/17 05:35 Lymph # 1.9 K/mm3 (1.2-5.4) 02/07/17 05:35 [place] # 0.7 K/mm3 (0.0-0.8) 02/07/17 05:35 Eos # 0.1 K/mm3 (0.0-0.4) 02/07/17 05:35 Baso # 0.1 K/mm3 (0.0-0.1) 02/07/17 05:35 Seg Neutrophils % 63.1 % (40.0-70.0) 02/07/17 05:35 Seg Neutrophils # 4.7 K/mm3 (1.8-7.7) 02/07/17 05:35 Sodium 140 mmol/L (137-145) 02/08/17 04:31 Potassium 4.1 mmol/L (3.6-5.0) 02/08/17 04:31 Chloride 104.1 mmol/L (98-107) 02/08/17 04:31 Carbon Dioxide 22 mmol/L (22-30) 02/08/17 04:31 Anion Gap 18 mmol/L 02/08/17 04:31 BUN 8 mg/dL (7-17) 02/08/17 04:31 Creatinine 0.6 mg/dL (0.7-1.2) L 02/08/17 04:31 Estimated GFR > 60 ml/min 02/08/17 04:31 BUN/Creatinine Ratio 13.33 % 02/08/17 04:31 Glucose 79 mg/dL (65-100) 02/08/17 04:31 Calcium 8.6 mg/dL (8.4-10.2) 02/08/17 04:31 Magnesium 2.00 mg/dL (1.7-2.3) 02/08/17 04:31 Total Bilirubin 0.30 mg/dL (0.1-1.2) 02/07/17 05:35 AST 14 units/L (5-40) 02/07/17 05:35 ALT 11 units/L (7-56) 02/07/17 05:35 Alkaline Phosphatase 47 units/L (35-129) 02/07/17 05:35 Total Protein 7.8 g/dL (6.3-8.2) 02/07/17 05:35 Albumin 4.4 g/dL (3.9-5) 02/07/17 05:35 Albumin/Globulin Ratio 1.3 % 02/07/17 05:35 Lipase 17 units/L (13-60) 02/07/17 05:35 Urine Color Straw (Yellow) 02/07/17 06:19 Urine Turbidity Clear (Clear) 02/07/17 06:19 Urine pH 7.0 (5.0-7.0) 02/07/17 06:19 Ur Specific [place] 1.016 (1.003-1.030) 02/07/17 06:19 Urine Protein <15 mg/dl mg/dL (Negative) 02/07/17 06:19 Urine Glucose (UA) Neg mg/dL (Negative) 02/07/17 06:19 Urine Ketones Neg mg/dL (Negative) 02/07/17 06:19 Urine Blood Mod (Negative) 02/07/17 06:19 Urine Nitrite Neg (Negative) 02/07/17 06:19 Urine Bilirubin Neg (Negative) 02/07/17 06:19 Urine Urobilinogen < 2.0 mg/dL (<2.0) 02/07/17 06:19 Ur Leukocyte Esterase Neg (Negative) 02/07/17 06:19 Urine WBC (Auto) 1.0 /HPF (0.0-6.0) 02/07/17 06:19 Urine RBC (Auto) 12.0 /HPF (0.0-6.0) 02/07/17 06:19 U Epithel Cells (Auto) < 1.0 /HPF (0-13.0) 02/07/17 06:19 Urine Mucus Few /HPF 02/07/17 06:19 Urine HCG, Qual Negative (Negative) 02/07/17 06:19 Urine Opiates Screen Presumptive negative 02/07/17 06:19 Urine Methadone Screen Presumptive negative 02/07/17 06:19 Ur Barbiturates Screen Presumptive negative 02/07/17 06:19 Phenytoin 21.7 mg/L (10.0-20.0) H 02/10/17 05:15 Ur Phencyclidine Scrn Presumptive negative 02/07/17 06:19 Ur Amphetamines Screen Presumptive negative 02/07/17 06:19 U Benzodiazepines Scrn Presumptive negative 02/07/17 06:19 Urine Cocaine Screen Presumptive negative 02/07/17 06:19 U Marijuana (THC) Screen Presumptive positive 02/07/17 06:19 Drugs of Abuse Note Disclamer 02/07/17 06:19 Blood Type A POSITIVE 02/07/17 09:25 TIMOTHY Antibody Screen Negative 02/07/17 09:25 Crossmatch See Detail 02/07/17 09:25
[2017-02-10] MEDS ORDERED: MORPHINE IV PRN (14:35)
[2017-02-10] MEDS: TYLENOL PO PRN (19:39)
[2017-02-11] MEDS: NACL 0.9% 1000 ML 1,000 ML IV SCH (03:43)
[2017-02-11] MEDS: NORCO 7.5/325 PO PRN (06:19)
[2017-02-11 08:10] VITALS: BP 110/70
[2017-02-11] MEDS: KEPPRA PO SCH (09:40)
[2017-02-11] MEDS: THERAGRAN Tab PO SCH (09:40)
[2017-02-11] MEDS: FOLVITE PO SCH (09:40)
[2017-02-11 10:52] LABS: Mean Corpuscular HGB Conc 30 % (30-34); Platelet Count 430 K/mm3 (140-440); Red Blood Count 4.18 M/mm3 (3.65-5.03); White Blood Count 6.8 K/mm3 (4.5-11.0)
[2017-02-11 10:53] LABS: Hemoglobin 8.3 gm/dl (10.1-14.3); Mean Corpuscular Hemoglobin 20 pg (28-32); Mean Corpuscular Volume 67 fl (79-97); Red Cell Distribution Width 24.6 % (13.2-15.2)
[2017-02-11 10:57] LABS: Anion Gap 15 mmol/L; Blood Urea Nitrogen 4 mg/dL (7-17); Calcium 8.8 mg/dL (8.4-10.2); Carbon Dioxide 25 mmol/L (22-30); Chloride 104.1 mmol/L (98-107); Glucose 93 mg/dL (65-100); Potassium 3.8 mmol/L (3.6-5.0); Sodium 140 mmol/L (137-145)
--- NOTE | 2017-02-11 12:45 | Progress Note ---
Assessment and Plan 26 YO F Hx epilepsy on PHT 200-100-200 p/w breakthrough seizure/GTC d/t subtherapeutic PHT level. She was re-loaded but d/t recurrent seizure last 02/10 AM in setting of PHT level up to 29.5, LEV was started and pt has been Sz free & back to baseline. MRI Brain neg. PHT level 02/11 AM 16.8 Plan and Recommendation: 1. Telemetry bed w/ Q4 hour neuro checks & Sz precautions 2. Labs: Serum/Urine Tox, UA/UCx, Electrolytes especially Na, Ca, Mg, and Glucose, and correct as necessary 3. Cont Infectious work up/medical management for UTI, PNA, cellulitis, bacteremia, etc. 4. Avoid hyponatremia, hypo/hyper-calcemia, hypo/hyperglycemia, acidosis, hypoxia/hypoxemia, hypercarbia/hypercapnia 5. Avoid institution of any psychoactive medications (e.g. antihistamines, anticholinergics, BZD, hypnotics, opiates) as able unless low doses of low potency antipsychotic needed for behavioral issues complicating medical care 7. AED therapy: Cont LEV 500mg BID, resume PHT 200-100-200 8. Avoid meds that can lower sz threshold e.g. Tramadol, fluroquinolones, carbapenems 9. Pt advised of [place] driving regulations: report date of presumed Seizure/ unexplained loss of consciousness/awareness spell to [facility], refrain from operating a motor vehicle for 6 months after this date, and avoid unsupervised activity particularly around water or heights 10. Neurologically clear for discharge once resolved fully to baseline w/o recurrent seizure for 24 hrs. 11. Follow up as outpt with Neurology Subjective Date of service: 02/11/17 Principal diagnosis: Seizure. Interval history: last sz 02/09 AM per patient but 02/10 per notes. GTC w/ LOC Pt currently feels back to baseline. Objective - Vital Sign Vital Signs - 12hr 02/11/17 07:55 Temperature 98.2 F Pulse Rate [ 66 Left Radial] Respiratory 20 Rate Blood Pressure 110/70 [Left Arm] O2 Sat by Pulse 99 Oximetry - General Apperance Constitutional: comfortable - EENT EENT: ATNC, PERRL, mucous membranes moist, hearing intact, vision intact - Respiratory Respiratory: chest non-tender, normal breath sounds, no respiratory distress - Cardiovascular Cardiovascular: regular rate Extremities: no peripheral edema bilat, no clubbing, cyanosis, no inflammation, no ischemia or petechiae - Gastrointestinal Gastrointestinal: normoactive bowel sounds, soft, non-distended - Integumentary Integumentary: normal - Neurologic Cranial nerve examination: PERRL, EOMI, VFF, V1/V2/V3 grossly intact, face symmetric, tongue midline, intact, intact shoulder shrug, intact cough reflex, Intact Vestibulo-ocular r, intact corneal reflex, normal palatal elevation Speech examination: intact Detailed motor examination: full strength in all etienne Motor examination - right side: 5/5: biceps, triceps, wrist flexion, wrist extension, refueling rampman, hip flexors, knee extensors, dorsiflexion, toe extension (EHL) , plantarflexion Motor examination - left side: 5/: biceps, triceps, wrist flexion, wrist extension, refueling rampman, hip flexors, knee extensors, dorsiflexion, toe extension (EHL) , plantarflexion Detailed sensory examination: intact Reflex and gait examination: intact Reflexes: 2+: ankle, bicep, knee, tricep - Musculoskeletal Musculoskeletal: no fluid collection, no pain, normal range of motion - Psychiatric Psychiatric: mood/affect appropriate, cooperative - Laboratory Findings CBC and BMP: 02/11/17 10:25 02/11/17 10:25 Abnormal Lab Findings: Abnormal Labs 02/08/17 02/08/17 02/08/17 04:31 04:31 09:00 Hgb 8.2 L Hct 27.5 L MCV 67 L D MCH 20 L RDW 23.3 H BUN Creatinine 0.6 L Phenytoin 32.3 H 02/09/17 02/10/17 02/11/17 04:11 05:15 10:25 Hgb 8.3 L Hct 28.0 L MCV 67 L MCH 20 L RDW 24.6 H BUN Creatinine Phenytoin 29.5 H 21.7 H 02/11/17 10:25 Hgb Hct MCV MCH RDW BUN 4 L Creatinine 0.5 L Phenytoin
== END 2017-02-11 14:15 | disposition home or self-care (01) | DRG 100 ==
LOC: ED 05:12 → 3A 10:21
PROVIDERS: ADMIT Internal Medicine; ATTEND Internal Medicine
PROC: 30233N1 Transfusion of Nonautologous Red Blood Cells into Peripheral Vein, Percutaneous Approach (ICD-10-PCS; principal; 2017-02-07)
DX: G40.909 Epilepsy, unspecified, not intractable, without status epilepticus (principal); G92 Toxic encephalopathy; D62 Acute posthemorrhagic anemia; N93.8 Other specified abnormal uterine and vaginal bleeding; Z82.0 Family history of epilepsy and other diseases of the nervous system; N92.1 Excessive and frequent menstruation with irregular cycle; Z72.89 Other problems related to lifestyle; F17.210 Nicotine dependence, cigarettes, uncomplicated; T42.0X5A Adverse effect of hydantoin derivatives, initial encounter; Y92.89 Other specified places as the place of occurrence of the external cause
CPT/HCPCS: 36415; 70551; 76830; 76856; 80048; 80053; 80185; 80307; 81001; 81025; 83690; 83735; 85025; 85027; 86850; 86900; 86901; 86920; 96374; 96375; J1165; J1885; J2060; J2270; J2405; J7030; J7050; P9016

== ENCOUNTER 2017-03-08 00:32 | Emergency (ER) | payer SELFPAY ==
[2017-03-08 01:16] VITALS: BP 137/93
== END 2017-03-08 05:43 | disposition left against medical advice (07) ==
LOC: ED 00:32
DX: S60.861A Insect bite (nonvenomous) of right wrist, initial encounter (principal); F17.200 Nicotine dependence, unspecified, uncomplicated; W57.XXXA Bitten or stung by nonvenomous insect and other nonvenomous arthropods, initial encounter; Y93.89 Activity, other specified; Y99.9 Unspecified external cause status; Y92.89 Other specified places as the place of occurrence of the external cause; Z53.21 Procedure and treatment not carried out due to patient leaving prior to being seen by health care provider